=== PATIENT | female | born 1950 | race Caucasian/White ===

== ENCOUNTER 2016-11-18 17:22 | Emergency (ER) | payer OTHER ==
[~2016-11-18] VITALS: Ht 167.6 cm; Wt 84.3 kg
[~2016-11-18 17:22] MED LIST: ASPI1TAB69 PO; CYAN100025 SL; LEVO25TA4 PO; LISI10TA3 PO; PRAV10TA PO; TICA1TAB PO; VITA100036 PO
[2016-11-18 17:36] VITALS: BP 149/89; PULSE 53; RESP 16; TEMP 97.9; O2SAT 98
--- NOTE | 2016-11-18 17:44 | PD ---
HPI . left sided ear fullness, dizziness x 1 day Chief Complaint: ENT Complaint Time Seen by Provider: 17:44 Travel History International Travel<30 days: No Contact w/Intl Traveler<30days: No Traveled to known affect area: No History of Present Illness HPI 66-year-old female with hypertension, thyroid disease, CAD here with complaints of left ear fullness and slight dizziness for 1 day. Patient tells me this is how her inner ear infections usually start off. She reports that she's had recurrent ear infections and they all present similarly. She decided to come into the emergency department for evaluation as she would like medication to stop this before it gets worse. She denies any fever chills or cold like symptoms. She is accompanied by her significant other. PFSH Past Medical History Hx Anticoagulant Therapy: Yes Arthritis: No Asthma: No Heart Rhythm Problems: No Cancer: No Cardiac Catheterization: Yes Cardiovascular Problems: Yes (htn on meds) High Cholesterol: Yes Chemotherapy: No Chest Pain: Yes COPD: No Cerebrovascular Accident: No Diabetes: No Diminished Hearing: No Endocrine: No GERD: No Genitourinary: No Hepatitis: No Hiatal Hernia: No Hypertension: Yes Immune Disorder: No Kidney Stones: No Musculoskeletal: No Neurologic: No Psychiatric: No Reproductive: No Respiratory: No Integumentary: Yes (CELLULTIS LT LOWER LEG) Migraines: No Radiation Therapy: No Renal Failure: No Seizures: No Sickle Cell Disease: No Sleep Apnea: No Thyroid Disease: Yes (HYPOTHYROID) Ulcer: No ?: Not : 3 Para: 2 Miscarriage: 0 : 0 Tubal Ligation: Yes Past Surgical History Abdominal Surgery: Yes (UMBILICAL HERNIA REPAIR) AICD: No Body Medical Devices: NONE Cardiac Surgery: Yes (CATH 3 YRS AGO) Ear Surgery: No Endocrine Surgery: No Eye Surgery: No Genitourinary Surgery: No Gynecologic Surgery: Yes (TUBAL LIGATION, 3 UTERINE BIOPSIES) Hysterectomy: Yes Joint Replacement: No Oral Surgery: No Pacemaker: No Thoracic Surgery: Yes (R BREAST LUMPECTOMY ) Tonsillectomy: Yes Other Surgery: Yes Social History Alcohol Use: No Tobacco Use: Yes (1 PPD ) Substance Use: No Allergies-Medications (Allergen,Severity, Reaction): Coded Allergies: No Known Allergies (Unverified , 11/18/16) Reported Meds & Prescriptions Reported Meds & Active Scripts Active Meclizine (Meclizine HCl) 25 Mg Tab 25 Mg PO TID PRN 3 Days Amoxicillin 500 Mg Tab 500 Mg PO BID 10 Days Reported Levothyroxine (Levothyroxine Sodium) 25 Mcg Tab 25 Mcg PO DAILY Brilinta (Ticagrelor) 60 Mg Tab 60 Mg PO BID Pravastatin 10 Mg Tab 10 Mg PO DAILY B-12 (Cyanocobalamin) 1,000 Mcg Subl 1,000 Mcg SL DAILY Vitamin D3 (Cholecalciferol) 1,000 Unit Cap 1,000 Units PO DAILY Lisinopril 10 Mg Tab 10 Mg PO DAILY Aspirin 81 Mg Tabdr 81 Mg PO DAILY Review of Systems General / Constitutional: No: Fever Eyes: No: Visual changes HENT: Positive: Earache, No: Headaches Cardiovascular: No: Chest Pain or Discomfort Respiratory: No: Shortness of Breath Gastrointestinal: No: Abdominal Pain Genitourinary: No: Dysuria Musculoskeletal: No: Pain Skin: No Rash Neurologic: Positive: Dizziness, No: Weakness Psychiatric: No: Depression Endocrine: No: Polydipsia Hematologic/Lymphatic: No: Easy Bruising Physical Exam Narrative GENERAL: AAO x 3, no acute distress, Well-nourished, well-developed patient. SKIN: Warm and dry. No visible rashes or bruising. HEAD: Normocephalic and atraumatic. EYES: No scleral icterus. No injection or drainage. EOM intact, PERRLA ENT: No nasal drainage noted. Mucous membranes pink. Airway patent. No oropharynx abnormality. Left TM bulging and slight serous fluid. NECK: Supple, trachea midline. No JVD. No lymphadenopathy CARDIOVASCULAR: Regular rate and rhythm without murmurs, gallops, or rubs. RESPIRATORY: Breath sounds equal bilaterally. No accessory muscle use. No rhonchi or rales. GASTROINTESTINAL: Abdomen soft, non-tender, nondistended. EXTREMITIES: No cyanosis or edema. BACK: Nontender without obvious deformity. No CVA tenderness. NEURO: CN II-12 intact, patient financial counselor strength normal b/l, UE and LE 5/5, no focal deficits PSYCH: AAO x 3, normal affect. Data Data Last Documented VS Vital Signs Date Time Temp Pulse Resp B/P Pulse Ox O2 Delivery O2 Flow Rate FiO2 11/18/16 17:36 97.9 53 16 149/89 98 MDM Medical Decision Making Medical Screen Exam Complete: Yes Emergency Medical Condition: Yes Medical Record Reviewed: Yes Differential Diagnosis OM, vertigo, sinusitis, OE Narrative Course 66-year-old female here with what she believes is inner ear infection. Exam is unremarkable except for what appears to be left otitis media. She is currently not dizzy. I recommend treatment for her ear infection. I've advised her that I will provide her with some antibiotics. Patient is also requesting meclizine. Advised follow-up with primary care provider. Patient verbalized understanding of instructions, questions were answered, and thanked me for their care. I advised them if their condition worsens, please return to the nearest emergency room for further care. Diagnosis Primary Impression: LOM (left otitis media) Qualified Code: H65.05 - Recurrent acute serous otitis media of left ear Additional Impression: Vertigo Patient Instructions: General Instructions Additional Instructions: Please return to emergency department if your symptoms return or worsen. Follow up with your primary care provider. Take medications as prescribed. Med/Other Pt SpecificInfo: Prescription(s) given Scripts Meclizine 25 Mg Tab25 Mg PO TID PRN (VERTIGO) 3 Days Ref 0 Prov:Janay Gray DO 11/18/16 Amoxicillin 500 Mg [id number] Mg PO BID 10 Days Ref 0 Prov:Janay Gray DO 11/18/16 Disposition: 01 DISCHARGE HOME Condition: Stable Alisia De La Rosa Nov 18, 2016 17:44
[2016-11-18] MEDS ORDERED: AMOX500T PO (17:49)
[2016-11-18] MEDS ORDERED: MECL-62 PO (17:49)
== END 2016-11-18 17:54 | disposition home or self-care (01) ==
LOC: PHEFT 17:22
DX: H65.05 Acute serous otitis media, recurrent, left ear (principal); F17.200 Nicotine dependence, unspecified, uncomplicated
CPT/HCPCS: 99284